=== PATIENT | female | born 2000 | race Caucasian/White ===

== ENCOUNTER 2023-03-25 10:25 | Emergency (ER) | payer MEDICAID, SELFPAY ==
[2023-03-25 10:37] VITALS: BP 141/84; PULSE 90; RESP 18; TEMP 36.8; O2SAT 100; BMI 34.8
[2023-03-25] MEDS: ONDANSETRON 4 MG RAPDIS TABLET SL (10:48)
[2023-03-25 10:58] LABS: Bilirubin Urine NEGATIVE (NEGATIVE); Blood Urine MODERATE (NEGATIVE); Clarity Urine CLEAR (CLEAR); Color Urine YELLOW (YELLOW); Glucose Urine UA NEGATIVE (NEGATIVE); Ketones Urine NEGATIVE (NEGATIVE); Leukocyte Esterase Urine NEGATIVE (NEGATIVE); Nitrite Urine NEGATIVE (NEGATIVE); Protein Urine NEGATIVE (NEG/TRACE); Specific Gravity Urine 1.015 (1.005-1.025); Urobilinogen Urine 0.2 EU/dL (0.2-1.0)
[2023-03-25 11:02] LABS: Urine Microscopic Indicated YES
[2023-03-25 11:02] LABS: HCG Qualitative Urine* NEGATIVE (NEGATIVE)
[2023-03-25 11:24] LABS: Bacteria Urine TRACE #/HPF (NONE SEEN); Mucus Urine NONE SEEN (NONE SEEN); WBC Urine 0-2 #/HPF (NONE SEEN)
[2023-03-25 11:25] LABS: Cast Seen? NONE SEEN #/LPF (NONE SEEN); Crystals Seen? None Seen #/HPF (None Seen); Squamous Epithelial Cell Urine MODERATE #/LPF (NONE/RARE); Urine Culture Indicated NO
--- NOTE | 2023-03-25 12:11 | ED.GENADUL1 ---
HPI - General Adult General Chief complaint: Nausea/Vomiting/Diarrhea Stated complaint: NAUSEA/VOMITING Time Seen by Provider: 03/25/23 12:06 Source: patient Mode of arrival: walk-in Limitations: no limitations History of Present Illness HPI narrative: Patient is a 23-year-old female who is presenting with flulike symptoms that started last evening. Patient's had mild cough. Patient also has had nausea, vomiting, and intermittent abdominal cramping. Patient works at [employer], she is due to work this evening. Patient says that she does not that she is . No urinary frequency, urgency or burning. Patient has no sick contacts. Patient has no sick contacts. Patient's been having vomiting of clear along with yellowish emesis. Patient has no headache or neck pain. She has no chest pain or shortness of breath. She currently has minimal abdominal cramping but her abdominal cramping was much more significant earlier this morning. Patient has no other acute complaints this time. Related Data Previous Rx's Medication Instructions Recorded dicyclomine 20 mg tablet 20 mg PO TID PRN abdominal pain #7 03/25/23 tabs ondansetron 4 mg disintegrating 4 mg PO Q4H PRN nausea and 03/25/23 tablet vomiting 3 days #6 tabs Allergies Allergy/AdvReac Type Severity Reaction Status Date / Time No Known Drug Allergies Allergy Verified 03/25/23 10:41 Review of Systems ROS Narrative All systems are negative except as noted/marked. All systems reviewed and otherwise negative. PFSH PFSH Social History Smoking status: Heavy tobacco smoker Exam Narrative Exam Narrative: Nurses note and vital signs reviewed and patient is not hypoxic. General: The patient appears well and in no apparent distress. Patient is resting comfortably on cart. Patient is not toxic, lethargic, or listless Skin: Warm, dry, no pallor noted. There is no rash noted. No petechiae, purpura. Head: Normocephalic, atraumatic Eye: Normal conjunctiva, no drainage, EOMI. PERRL Ears, Nose, Mouth, and Throat: oral mucosa is moist. Nares patent. Mouth without vesicles. Cardiovascular: Regular Rate and Rhythm, no murmur, gallop, rub Respiratory: Patient is in no distress, no accessory muscle use, lungs are clear to auscultation, no wheezing, rales or rhonchi Back: non-tender, no CVA tenderness bilaterally to percussion. No CT LS midline pain GI: soft, obese, no tenderness to palpation, no masses appreciated. No rebound, guarding, or rigidity noted. No flank pain bilateral, No distention. Patient currently has no peritoneal signs, no guarding, noTenderness to palpation during abdominal exam when I evaluated her at approximately 1200. Musculoskeletal: Patient has full range of motion of all of the extremities, no motor, sensory, or focal neurological deficits Neurological: A&O x3, normal speech Psychiatric: Cooperative Constitutional Vital Signs, click to edit/add: Last Vital Signs Temp 98.3 F 03/25/23 10:37 Pulse 90 03/25/23 10:37 Resp 18 03/25/23 10:37 BP 141/84 03/25/23 10:37 Pulse Ox 100 03/25/23 10:37 O2 Del Method Room Air 03/25/23 10:37 Course Vital Signs Vital signs: Vital Signs Temperature 98.3 F 03/25/23 10:37 Pulse Rate 90 03/25/23 10:37 Respiratory Rate 18 03/25/23 10:37 Blood Pressure 141/84 03/25/23 10:37 Pulse Oximetry 100 03/25/23 10:37 Oxygen Delivery Method Room Air 03/25/23 10:37 Temperature 98.3 F 03/25/23 10:37 Pulse Rate 90 03/25/23 10:37 Respiratory Rate 18 03/25/23 10:37 Blood Pressure 141/84 03/25/23 10:37 Pulse Oximetry 100 03/25/23 10:37 Oxygen Delivery Method Room Air 03/25/23 10:37 Medical Decision Making MDM Narrative Medical decision making narrative: Education was done at bedside. Patient tolerated ice chips well without difficulty. Patient is given a Zofran in triage. Patient looks well. Patient will be sent home with a prescription for Zofran and Bentyl. Work note was given. No questions at discharge. Lab Data Labs: Lab Results 03/25/23 03/25/23 Range/Units 10:44 10:45 Urine Color Yellow (YELLOW) Urine Clarity Clear (CLEAR) Urine pH 7.0 (5.0-9.0) Ur Specific [place] 1.015 (1.005-1.025) Urine Protein Negative (NEG/TRACE) mg/dL Urine Glucose (UA) Negative (NEGATIVE) mg/dL Urine Ketones Negative (NEGATIVE) mg/dL Urine Occult Blood Moderate A (NEGATIVE) Urine Nitrite Negative (NEGATIVE) Urine Bilirubin Negative (NEGATIVE) Urine Urobilinogen 0.2 (0.2-1.0) EU/dL Ur Leukocyte Esterase Negative (NEGATIVE) Urine RBC 2-5 A (0-2) #/HPF Urine WBC 0-2 A (NONE SEEN) #/HPF Ur Squamous Epith Cells Moderate A (NONE/RARE) #/LPF Urine Crystals None seen (None Seen) #/HPF Urine Bacteria Trace A (NONE SEEN) #/HPF Urine Casts None seen (NONE SEEN) #/LPF Urine Mucus None seen (NONE SEEN) Ur Culture Indicated? No Urine HCG, Qual Negative (NEGATIVE) Discharge Plan Discharge Chief Complaint: Nausea/Vomiting/Diarrhea Clinical Impression: Abdominal cramping, Nausea & vomiting Patient Disposition: Home, Self-Care Time of Disposition Decision: 12:07 Condition: Fair Prescriptions / Home Meds: New dicyclomine 20 mg tablet 20 mg PO TID PRN (Reason: abdominal pain) Qty: 7 0RF ondansetron 4 mg tablet,disintegrating 4 mg PO Q4H PRN (Reason: nausea and vomiting) 3 Days Qty: 6 0RF Additional Instructions: Continue to increase her fluids at home. Use Zofran as needed for nausea and vomiting. Work note given. Increase Gatorade, Powerade, or Pedialyte. Stand Alone Forms: Work/School Release, Portal Instructions Referrals: Javier Vásquez MD [Primary Care Provider] - 1 week
== END 2023-03-25 12:24 | disposition home or self-care (01) ==
PROVIDERS: Emergency Provider Emergency Medicine; PCP Family Medicine
DX: R10.9 Unspecified abdominal pain (principal); R11.2 Nausea with vomiting, unspecified; F17.210 Nicotine dependence, cigarettes, uncomplicated
CPT/HCPCS: 81001; 84703; 99284